=== PATIENT | male | born 1980 | race African-American/Black ===

== ENCOUNTER 2022-07-12 11:49 | Emergency (ER) | payer OTHER ==
[~2022-07-12] VITALS: Ht 180.3 cm; Wt 136.1 kg
[2022-07-12 11:50] VITALS: TEMP 97.8
[2022-07-12 14:45] VITALS: BP 137/83
== END 2022-07-12 14:45 | disposition home or self-care (01) ==
LOC: ED 11:49
DX: M54.59 Other low back pain (principal); W13.8XXA Fall from, out of or through other building or structure, initial encounter; Y92.89 Other specified places as the place of occurrence of the external cause
CPT/HCPCS: 96372; 99283; J1885; J2270; J2360